=== PATIENT | female | born 1995 | race Two or more races ===

== ENCOUNTER 2017-05-31 15:05 | Emergency (ER) | payer SELFPAY ==
--- NOTE | 2017-05-31 15:12 | EDPHY ---
H & P Time Seen by Provider: 05/31/17 15:10 HPI/ROS: CHIEF COMPLAINT: Altered mental status HISTORY OF PRESENT ILLNESS: EMS was called to a patient who was not breathing and unconscious. On arrival they found this patient was combative and appeared intoxicated. Her friends related that she drink alcohol today but no other drugs or ingestions, no other medical complaints, no history of fall injury or trauma. On arrival the patient is just combative with slurred speech. Further history and review of systems unobtainable because the patient is nonverbal. Pre-hospital EMS glucose 144. PAST MEDICAL HISTORY: Negative Social history: Student, alcohol as above General Appearance: Combative, slurred speech Eyes: No scleral icterus. Pupils reactive. ENT, Mouth: Normal mucous membranes. Respiratory: Normal respiratory effort, breath sounds equal, lungs are clear to auscultation. Cardiovascular: Regular rate and rhythm. Gastrointestinal: Abdomen is soft and non tender. Neurological: Patient is alert with slurred speech and combative moving all 4 extremities. Skin: Warm and dry, no rashes. No lacerations. Musculoskeletal: No extremity deformity or tenderness, no spinal tenderness. Psychiatric: Unable because of altered mental status. Emergency Department course/MDM: Presentation consistent with what her friends described as isolated alcohol ingestion. Not hypoglycemic. No evidence of trauma. Plan for serial examinations. 1521: 4mg IV zofran for vomiting. 1616: Ambulatory, no medical complaints, not ataxic. Constitutional: Initial Vital Signs Heart Rate 73 05/31/17 15:15 Respiratory Rate 18 05/31/17 15:15 Blood Pressure 119/73 05/31/17 15:15 O2 Sat (%) 94 05/31/17 15:15 O2 Delivery Mode Room Air Allergies/Adverse Reactions: Unable to Assess Allergy (Unverified 05/31/17 15:35) Home Medications: Medication Instructions Recorded Unobtainable 05/31/17 Medical Decision Making Differential Diagnosis: Differential diagnosis considered for altered mental status including but not limited to hypoglycemia, infectious process, electrolyte abnormality, head injury and intoxicants. - Data Points Medications Given: Discontinued Medications Ondansetron HCl (Zofran) 4 mg IVP EDNOW ONE Stop: 05/31/17 15:20 Last Admin: 05/31/17 15:21 Dose: 4 mg Departure - Departure Disposition: Home, Routine, Self-Care Clinical Impression: Alcohol intoxication Condition: Good Instructions: Alcohol Intoxication (ED) Referrals: CHONG Salas,. [Clinic] - As per Instructions
[2017-05-31] MEDS ORDERED: ONDANSETRON 4 MG/2 ML VIAL ONE (15:19)
[2017-05-31] MEDS ORDERED: ONDANSETRON 4 MG/2 ML VIAL IVP ONE (15:19)
[2017-05-31 15:42] VITALS: BP 119/73; PULSE 73; RESP 18; O2SAT 94
== END 2017-05-31 16:53 | disposition home or self-care (01) ==
DX: F10.129 Alcohol abuse with intoxication, unspecified (principal)
CPT/HCPCS: 96374; J2405